=== PATIENT | female | born 1950 | race Caucasian/White ===

== ENCOUNTER → 2022-12-10 07:58 | Outpatient (CLI) | payer OTHER, SELFPAY ==
[2022-12-10 10:12] LABS: Free T4 (Free Thyroxine) 1.27 ng/dl (0.78-2.19)
[2022-12-10 10:27] LABS: Thyroid Stimulating Hormone < 0.02 uIU/mL (0.465-4.68)
[2022-12-11 14:22] LABS: Triiodothyronine (T3) Free 3.2 pg/mL (2.0-4.4)
== END ==
PROVIDERS: PCP Chiropractor; Visit Provider Chiropractor
DX: E03.9 Hypothyroidism, unspecified (principal)
CPT/HCPCS: 36415; 84439; 84443; 84481